=== PATIENT | female | born 1995 | race Caucasian/White ===

== ENCOUNTER → 2018-02-13 | Outpatient (REF) | payer OTHER | LOC: M LAB REF 13:24 | DX: N39.0 Urinary tract infection, site not specified (principal) | CPT/HCPCS: 87086 ==

== ENCOUNTER → 2018-09-17 | Outpatient (REF) | payer OTHER | LOC: M LAB REF 10:39 | PROVIDERS: ATTEND Physician Assistant | DX: R30.0 Dysuria (principal) ==

== ENCOUNTER 2018-11-18 15:36 | Inpatient (IN) | payer OTHER ==
[~2018-11-18] VITALS: Ht 167.6 cm; Wt 116.9 kg
[2018-11-18 16:07] VITALS: BP 111/66
[2018-11-18] MEDS ORDERED: PRENTAB9 PO (16:20)
[2018-11-18] MEDS ORDERED: MAPA500C PO (16:20)
[2018-11-18] MEDS ORDERED: TUMS500C PO (16:20)
[2018-11-18 16:25] VITALS: BP 109/61
[2018-11-18] MEDS ORDERED: LACTATED RINGER'S 1000 ML IV STA (16:49)
[2018-11-18 17:02] LABS: HEMOGLOBIN 12.9 g/dl (12.0-15.5); MEAN CORPUSCULAR HEMOGLOBIN 31.2 pg (27.0-33.0); MEAN CORPUSCULAR HGB CONC 34.9 g/dl (32.0-36.5); MEAN CORPUSCULAR VOLUME 89.6 fl (80.0-96.0); PLATELET COUNT, AUTOMATED 159 10^3/uL (150-450); RED BLOOD COUNT 4.13 10^6/uL (4.00-5.40)
--- NOTE | 2018-11-18 17:32 | HPEPDOC ---
Obstetrical History & Physical General Date of Admission Nov 18, 2018 at 15:36 History of Present Illness 23yo at 37+5wks presents to LND for observation and possible IOL. Pt sent f rom OB Clinic after APFT with non-reassuring tracing and KRISTEN of 2 (BPP 6/10). Pt reports +FM, denies LOF/VB/CTX. complicated by obesity (pre- BMI 43.42), Hashimotos, Anxiety/depression. 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 (FOB negative) Chief Complaint: Observation, Other Information Provided By: Patient Care Care: Good Care Number of Visits: 11 Dating Final EDC: Dec 04, 2018 Final EDC for Daily Update: Dec 04, 2018 Final EDC by: LMP Antepartum Course Diagnos(e)s Obesity, Hashimotos, Varicella NI, Anxiety/Depression, Cystic Fibrosis Carrier (spouse negative) Height (inches): 66 Pre- weight (lbs.): 269 Admission Weight (lbs.): 257 Change in Weight (lbs.): -12 Past Medical History Past Obstetrical History : Past Obstetrical History: Primgravida Past Medical History Medical History Hashimotos, migraines, obesity Surgical History: Gallbladder Family History Significant Family History: No pertinent family hx Social History Marital Status: Family situation: Spouse/partner home Psychosocial History: Anxiety, Depression * Smoker: non-smoker Alcohol: Denies Drugs: denies Allergies Coded Allergies: No Known Allergies (Unverified , 11/18/18) Medications Scheduled No.137/Iron/Folic Acd ( Vitamin Tablet) 1 Each Tablet, 1 TAB PO DAILY Scheduled PRN Acetaminophen (Mapap) 500 Mg Capsule, 500 MG PO PRN PRN for PAIN Calcium Carbonate (Tums) 200 Mg Tab.chew, 2 TAB PO Q4H PRN for INDIGESTION Physical Examination Physical Examination GENERAL: Alert and oriented times three. BREAST: . ABDOMEN: Gravid and non-tender to touch. FETUS: Is vertex by US HEART RATE: Regular rate and rhythm. LUNGS: CTA EXTREMITIES: Mild bilateral pedal edema, nonpitting Other physical findings [facility] BPP: 8/8 KRISTEN: 6.8 Vital Signs/I&O Vital Signs Date Time Temp Pulse Resp B/P (MAP) Pulse Ox O2 Delivery O2 Flow Rate FiO2 11/18/18 16:25 100 109/61 (77) 11/18/18 16:07 98.7 Laboratory Data 24H LABS Laboratory Tests 2 11/18/18 16:50: CBC/BMP Pertinent Laboratoy Data Blood Type: A+ RBC Antibody Screen: Negative HIV: Negative Hepatitis B: Negative Rapid Plasma Reagin: Nonreactive Rubella: Immune Varicella: Nonreactive Chlamydia/Gonorrhea: Negative Group B Streptococcus: Negative Quad Screen Test: Negative Cystic Fibrosis: Positive Glucose Tolerance Test: 91 Anatomy Ultrasound Ultrasound Date: July 13, 2018 Placenta Location: Posterior Normal Anatomy: No (Incomplete cardiac evaluation) Placenta Previa: No Other Ultrasounds [id number]: Repeat; WNL Cardiac views [id number]: Growth; 74%tile 5AUG9: Growth; 59%tile Assessment Heart Rate (FHR): 130 Variability: Moderate Accelerations: Positive Decelerations: None Tocometer Contractions: No Assessment/Plan Assessment 23yo at 37+5wks Category I FHT/Reactive (initial NST FHR 145, moderate variability, + accels, no decels noted; NST upon return from BPP: FHR 125, minimal variability, no accels or decels; then FHR increased to 130s with moderate variability with + accels, no decels noted, no CTX present for reactive 20 minute NST) - overall reassuring status BPP 8/8, KRISTEN 6.8 Plan Pt Hydrated with IV LR (2L) BPP (see imaging) Pt discharged home with strict return precautions Pt to f/u tomorrow at 0900 for repeat NST and BPP with KRISTEN; will reassess IOL pending results All results and plan of care discussed with Dr. Anderson Pt and spouse verbalize an understanding BRIANA ELIAS CNM Nov 18, 2018 17:32
[2018-11-18 17:34] VITALS: BP 122/67
[2018-11-18 18:32] VITALS: BP 129/70
--- NOTE | 2018-11-18 18:59 | REPVR ---
EXAM: US Biophysical Profile Without Non-Stress Test EXAM DATE/TIME: 11/18/2018 5:57 PM CLINICAL HISTORY: 23 years old, female; Other: Low fluid; ; Additional info: 37+5wks, needs bpp/kristen, R/O oligo TECHNIQUE: Imaging protocol: US biophysical profile without non-stress testing. COMPARISON: No relevant prior studies available. FINDINGS: Breathin/2 Gross body movements: 2/2 tone: 2/2 Qualitative amniotic fluid: 2/2 Biophysical Profile Score: 8/8 Gestation: Single intrauterine gestation. Cephalic presentation. Heart rate: heart rate measures 126 beats per minute. Placenta: Posterior grade 3 placenta. Umbilical artery Doppler: Umbilical artery S./D. ratio measures 2.1. Other findings: Amniotic fluid index measures 6.8 cm. Deepest pocket measures 3.2 cm. No hydronephrosis. Fluid within the urinary bladder. Fluid within the stomach. IMPRESSION: 1. Low normal KRISTEN. 2. Biophysical profile score is 8/8. 3. Vertex presentation. Electronically signed by: Maddison Cole On 11/18/2018 18:59:42 PM
--- NOTE | 2018-11-18 19:32 | OBDS ---
[facility] Obstetrical Discharge Sum. Obstetrical Discharge Summary Date: Nov 18, 2018 A/P, Post Course List any complications See H&P BRIANA ELIAS CNM Nov 18, 2018 19:32
== END 2018-11-18 19:42 | disposition home or self-care (01) | DRG 998 ==
LOC: M LDI 15:36
PROVIDERS: ADMIT Registered Nurse Maternal Newborn; ATTEND Registered Nurse Maternal Newborn
DX: O76 Abnormality in fetal heart rate and rhythm complicating labor and delivery (principal); Z68.41 Body mass index [BMI] 40.0-44.9, adult; Z3A.37 37 weeks gestation of pregnancy; E66.9 Obesity, unspecified; O99.213 Obesity complicating pregnancy, third trimester; E06.3 Autoimmune thyroiditis; O99.283 Endocrine, nutritional and metabolic diseases complicating pregnancy, third trimester; Z14.1 Cystic fibrosis carrier

== ENCOUNTER 2018-11-19 08:52 | Outpatient (CLI) | payer OTHER ==
[~2018-11-19] VITALS: Ht 167.6 cm; Wt 117.3 kg
[~2018-11-19 08:52] MED LIST: MAPA500C PO; PRENTAB9 PO; TUMS500C PO
[2018-11-19 09:11] VITALS: BP 116/55
[2018-11-19 10:20] VITALS: BP 121/64
--- NOTE | 2018-11-19 10:23 | IPNPDOC ---
Text Note Date of Service The patient was seen on 11/19/18. 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 She was seen for testing on 18Nov2018 and had a nonreactive tracing. She had a BPP that was 8/8 at that time. She was told to return today for repeat NS T/BPP. She reports that she is doing well and has no concerns today. She denies regular contractions, vaginal bleeding, loss of fluid. She reports active movement. VS: Reviewed, normotensive, nontachycardic, afebrile GEN: WNWD, NAD ABD: Soft, Gravid, NT EXT: no edema FHT: Reactive, 135bpm, moderate variability, +accelerations, -decelerations TOCO: quiet BPP: 8/8, KRISTEN 9.3cm A/P: SIUP at 3+6wks, presented for NST/BPP. RNST, BPP WNL with Normal KRISTEN. VSS. - Discussed strict return and labor precautions - Encouraged hydration - Discussed Kick counts - Keep all scheduled follow ups DO RITESH Ponce CRYSTAL B. DO Nov 19, 2018 10:23
--- NOTE | 2018-11-19 11:06 | REP ---
REASON: Obtain biophysical profile. Multiple ultrasonographic images of the gravid uterus show a single living intrauterine gestation in the cephalic presentation. Doppler interrogation of the heart shows a heart rate of 145 beats per minute. The cervix measures 3.3 cm in length and is closed. The subjective amniotic fluid volume is within normal limits. The placenta is posterior and not low lying. Doppler interrogation of the umbilical artery shows an A/B ratio of 2.52. This is within the normal range. The calculated amniotic fluid index is 9.3 with an expected range 7.3 to 24.0. biophysical scores: 2 for breathing, 2 for movement, 2 for tone, and 2 for amniotic fluid volume giving a sum total of 8 out of 8. Limited OB ultrasound with biophysical profile as described above. Electronically Signed by Zoltan Low DO 11/19/2018 11:25 A
== END 2018-11-19 10:30 | disposition home or self-care (01) ==
LOC: M LDO 08:52
PROVIDERS: ATTEND Obstetrics & Gynecology
DX: O26.893 Other specified pregnancy related conditions, third trimester (principal); Z3A.37 37 weeks gestation of pregnancy; O99.213 Obesity complicating pregnancy, third trimester; O99.283 Endocrine, nutritional and metabolic diseases complicating pregnancy, third trimester; O99.343 Other mental disorders complicating pregnancy, third trimester
CPT/HCPCS: 59025; 76815; 76819; 76820; G0378; G0463

== ENCOUNTER 2018-11-27 06:46 | Inpatient (IN) | payer OTHER ==
[~2018-11-27] VITALS: Ht 167.6 cm; Wt 116.8 kg
[2018-11-27] VITALS (21 sets, daily range): BP systolic 100–142; BP diastolic 55–92
[2018-11-27] MEDS ORDERED: LACTATED RINGER'S 1000 ML IV STA (07:24)
[2018-11-27 08:00] LABS: HEMATOCRIT 36.7 % (36.0-47.0); HEMOGLOBIN 12.3 g/dl (12.0-15.5); MEAN CORPUSCULAR HEMOGLOBIN 30.1 pg (27.0-33.0); MEAN CORPUSCULAR HGB CONC 33.5 g/dl (32.0-36.5); PLATELET COUNT, AUTOMATED 165 10^3/uL (150-450); RED BLOOD COUNT 4.08 10^6/uL (4.00-5.40); WHITE BLOOD COUNT 8.3 10^3/uL (4.0-10.0)
--- NOTE | 2018-11-27 08:40 | HPEPDOC ---
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 Ms. Mcghee reports feeling well and has no complaints. She denies any vaginal bleeding, contraction pain, or leakage of fluid. She endorses excellent movement. 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 Varicella non immune CF carrier --> FOB negative FOB's sister had cardiac defect ---> echo in current normal Anxiety/Depression ---> stable with BH counseling Past Medical History Past Obstetrical History : Past Obstetrical History: Primgravida [employer]IST History: No pertinent history Past Medical History Medical History Obesity ---> BMI 41 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 Anxiety/depression --> stable with behavioral health counseling Migraines Surgical History: Gallbladder Family History Significant Family History: No pertinent family hx Social History Marital Status: Family situation: Spouse/partner home Psychosocial History: Anxiety, Depression * Smoker: non-smoker Alcohol: Denies Drugs: denies Imunizations Tdap status: current Influenza Status: current Allergies Coded Allergies: No Known Allergies (Unverified , 11/18/18) Medications Scheduled No.137/Iron/Folic Acd ( Vitamin Tablet) 1 Each Tablet, 1 TAB PO DAILY Scheduled PRN Acetaminophen (Mapap) 500 Mg Capsule, 500 MG PO PRN PRN for PAIN Calcium Carbonate (Tums) 200 Mg Tab.chew, 2 TAB PO Q4H PRN for INDIGESTION Physical Examination Physical Examination GENERAL: Alert and oriented times three. BREAST: . ABDOMEN: Gravid and non-tender to touch. FETUS: Is vertex (VTX) by sterile vaginal examination (SVE), fetus is vertex (VTX) by Michael. HEART RATE: Regular rate and rhythm. LUNGS: Clear to auscultation (CTA). EXTREMITIES: No edema. No clonus. Deep tendon reflexes (DTRs) + . Laboratory Data 24H LABS Laboratory Tests 2 11/27/18 06:51: Serology Scanned Report Hepatitis B Testing 11/27/18 07:42: Nucleated Red Blood Cells % (auto) 0.0 CBC/BMP Laboratory Tests 11/27/18 07:42 Red Blood Count 4.08, Mean Corpuscular Volume 90.0, Mean Corpuscular Hemoglobin 30.1, Mean Corpuscular Hemoglobin Concent 33.5, Red Cell Distribution Width 13.7 Pertinent Laboratoy Data Blood Type: A+ RBC Antibody Screen: Negative HIV: Negative Hepatitis B: Negative Hepatitis C: Unknown Rapid Plasma Reagin: Nonreactive Rubella: Immune Varicella: Nonreactive Chlamydia/Gonorrhea: Negative Group B Streptococcus: Negative Quad Screen Test: Negative Cystic Fibrosis: Positive (Patient carrier for CF --> FOB negative) Glucose Tolerance Test: 91 Anatomy Ultrasound Placenta Location: Posterior Normal Anatomy: Yes Placenta Previa: No Steroid Therapy Steroid Therapy: No Vaginal Examination Dilation: 1cm Effacement: 50% Station: -3 Cervical Consistency: Medium Cervical Position: Posterior Presentation: Cephalic presentation Position: Vertex (occiput) Assessment Heart Rate (FHR): 135 Variability: Moderate Accelerations: Positive Decelerations: None Tocometer Contractions: No Assessment/Plan Assessment 23 yo at 39+0 weeks today presents for IOL for class III obesity and nahum's disease. Plan Admit for IOL. Apply IV fluids. Regular diet. GBS negative. Cervix unfavorable. Will start IOL with misoprostol. Patient may have epidural when desired. Anticipate . DO JACOB Brown CHRISTOPHER J. DO Nov 27, 2018 08:40
[2018-11-27] MEDS ORDERED: miSOPROStol 50 MCG 1/2 TAB (S0191) PO ONE (08:45)
[2018-11-27] MEDS ORDERED: BUTORPHANOL 2 MG/ML INJ (J0595) IV ONE (14:00)
--- NOTE | 2018-11-27 15:03 | IPNPDOC ---
Text Note Date of Service The patient was seen on 11/27/18. NOTE Patient s/p misoprostol and contractions have become regular. Cervix: /-3. Dawn bulb placed with 60ml saline intrauterine. FHR Cat I. Good change s/p cytotec. Patient nirmala on her own. Will give IV analgesia per patient request. When dawn bulb out will start pitocin. DO Rommel VS,Kaylee, I+O VS, Kaylee, I+O Laboratory Tests 11/27/18 07:42 Red Blood Count 4.08, Mean Corpuscular Volume 90.0, Mean Corpuscular Hemoglobin 30.1, Mean Corpuscular Hemoglobin Concent 33.5, Red Cell Distribution Width 13.7 Vital Signs Date Time Temp Pulse Resp B/P (MAP) Pulse Ox O2 Delivery O2 Flow Rate FiO2 11/27/18 12:35 97.6 79 18 106/60 (75) DARELL JAMES DO Nov 27, 2018 15:03
[2018-11-27] MEDS ORDERED: ONDANSETRON 4MG/2ML VIAL (J2405) IV PRN ×2 (15:15→19:55)
[2018-11-27] MEDS ORDERED: LR 1,000 ML IV SCH (19:00)
[2018-11-27] MEDS ORDERED: OXYTOCIN DRIP 30 UNITS in APPROPRIATE DILUENT 1 EA IV SCH (19:00)
[2018-11-27] MEDS ORDERED: FENTANYL 2MCG/ML ROPIVACAINE 0.2% IN 0.9% NACL 100ML IVBAG As Ordered ONE (19:12)
[2018-11-27] MEDS ORDERED: FENTANYL/ROPIVACAINE/NACL BAG 100 ML EPIDURAL SCH (19:55)
[2018-11-27] MEDS ORDERED: NALOXONE INJ 0.4 MG/1 ML VIAL (J2310) IV PRN (19:55)
[2018-11-27] MEDS ORDERED: EPIDURAL/PCA KEYS XX PRN (19:55)
[2018-11-27] MEDS ORDERED: ePHEDrine SULFATE 25 MG/5 ML(5MG/ML) SYRINGE IV PRN (19:55)
[2018-11-27] MEDS ORDERED: REFRIGERATOR IV KEYS XX PRN (19:55)
[2018-11-27] MEDS ORDERED: diphenhydrAMINE INJ 50MG/ML VIAL (J1200) IV PRN (19:55)
[2018-11-27] MEDS ORDERED: EPIDURAL COMMENT XX SCH (19:55)
[2018-11-27] MEDS ORDERED: LIDOCAINE 2% W/EPIN INJ 20ML **PRES FREE As Ordered ONE (20:29)
--- NOTE | 2018-11-27 20:40 | IPNPDOC ---
Text Note Date of Service The patient was seen on 11/27/18. NOTE [place] bulb came and patient started nirmala regularly and feeling signif icant pain. Pitocin was never started. She received an epidural with some relief. Cervix: /-1. FHR Cat I. Contractions regular. Patient progressing well into active phase. Will add pitocin if contractions space. DO Rommel VS,Kaylee, I+O VS, Kaylee, I+O Laboratory Tests 11/27/18 07:42 Red Blood Count 4.08, Mean Corpuscular Volume 90.0, Mean Corpuscular Hemoglobin 30.1, Mean Corpuscular Hemoglobin Concent 33.5, Red Cell Distribution Width 13.7 Vital Signs Date Time Temp Pulse Resp B/P (MAP) Pulse Ox O2 Delivery O2 Flow Rate FiO2 11/27/18 17:46 97.8 71 18 115/83 (94) DARELL JAMES DO Nov 27, 2018 20:40
--- NOTE | 2018-11-28 00:12 | IPNPDOC ---
Text Note Date of Service The patient was seen on 11/28/18. NOTE Epidural redone because Paola had no relief from her first one. Now she is comfortable. Cervix: 7/C/0. AROM performed productive of clear fluid. FHR Cat I. Patient nirmala well on her own. Will add pitocin if necessary. All patient questions answered. DO Rommel VS,Kaylee, I+O VS, Kaylee, I+O Laboratory Tests 11/27/18 07:42 Red Blood Count 4.08, Mean Corpuscular Volume 90.0, Mean Corpuscular Hemoglobin 30.1, Mean Corpuscular Hemoglobin Concent 33.5, Red Cell Distribution Width 13.7 Vital Signs Date Time Temp Pulse Resp B/P (MAP) Pulse Ox O2 Delivery O2 Flow Rate FiO2 11/27/18 17:46 97.8 71 18 115/83 (94) DARELL JAMES DO Nov 28, 2018 00:12
--- NOTE | 2018-11-28 04:19 | IPNPDOC ---
Text Note Date of Service The patient was seen on 11/28/18. NOTE Presented to room for assessment. Paola is feeling some pressure. Cervix: C/C/+1. FHR Cat I with intermittent early decels. Will begin pushing soon. DO Rommel VS,Kaylee, I+O VS, Kaylee, I+O Laboratory Tests 11/27/18 07:42 Red Blood Count 4.08, Mean Corpuscular Volume 90.0, Mean Corpuscular Hemoglobin 30.1, Mean Corpuscular Hemoglobin Concent 33.5, Red Cell Distribution Width 13.7 Vital Signs Date Time Temp Pulse Resp B/P (MAP) Pulse Ox O2 Delivery O2 Flow Rate FiO2 11/27/18 21:15 97.6 80 17 100 11/27/18 21:12 104/55 (71) DARELL JAMES DO Nov 28, 2018 04:19
[2018-11-28] MEDS ORDERED: OXYTOCIN DRIP 30 UNITS in APPROPRIATE DILUENT 1 EA IV SCH (05:44)
[2018-11-28] MEDS ORDERED: MEASLES,MUMPS,RUBELLA VACCINE INJ (MMR-II) (90707) SC SCH (05:45)
[2018-11-28] MEDS ORDERED: DIBUCAINE 1% OINTMENT 30GM TOP PRN (05:45)
[2018-11-28] MEDS ORDERED: ACETAMINOPHEN 500 MG TAB PO PRN (05:45)
[2018-11-28] MEDS ORDERED: IBUPROFEN 800 MG TAB PO PRN (05:45)
[2018-11-28] MEDS ORDERED: ONDANSETRON 4MG/2ML VIAL (J2405) IV PRN (05:45)
[2018-11-28] MEDS ORDERED: ACETAMINOPHEN TAB 650MG DOSE (2X325MG) PO PRN (05:45)
[2018-11-28] MEDS ORDERED: DOCUSATE SODIUM 100 MG CAP PO PRN (05:45)
[2018-11-28] MEDS ORDERED: IBUPROFEN 600 MG TAB PO PRN (05:45)
[2018-11-28] MEDS ORDERED: RHOGAM 300 MCG (1500 IU) INJ (J2790) IM SCH (05:45)
--- NOTE | 2018-11-28 05:49 | DNPDOC ---
[facility] Delivery Note Delivery Note DATE OF DELIVERY: 28Nov2018 at ~0520 PREDELIVERY DIAGNOSIS: 39+1 weeks gestation and IOL for class III obesity POST DELIVERY DIAGNOSIS: Delivered. PROCEDURE: Spontaneous vaginal delivery AGRONOMY SPECIALIST: Dr. Carney ANESTHESIA: Epidural ESTIMATED BLOOD LOSS: 200 mL. FINDINGS: Viable male , 8lbs 6oz (3810 grams), Apgars 9/9 DELIVERY SUMMARY: Presented to room as Paola was pushing well to +3 station. The bed was broken down and she was prepped for delivery. With excellent effort over about 45 minutes of pushing her infant delivered. presentation was SCOTT with restitution to LOT. The right anterior shoulder delivered with gentle traction followed easily by the remainder of the body. The was dried and stimulated on the field and a bulb suction was used. The was then placed on the maternal abdomen and cried vigorously. The three vessel cord was then clamped and cut by the FOB after appropriate time delay. Third stage was then completed with gentle traction on the cord and it was productive of an intact placenta. The uterine fundus was firmed with massage and pitocin was administered via IV bolus. Inspection of the vagina, perineum, and cervix revealed a left vaginal sidewall laceration and left hector clitoral laceration. These were repaired in the usual fashion with 3-0 vicryl and 4-0 vicryl suture respectively. There was excellent cosmesis and hemostasis after the repair. The fundus was palpated again and was firm. Sponge, instrument, and needle counts were correct X2. Mother and stable when I left the room. DO JACOB Brown CHRISTOPHER J. DO Nov 28, 2018 05:49
[2018-11-28 07:00] VITALS: BP 115/67
[2018-11-28 07:27] VITALS: BP 150/66
[2018-11-28 07:41] VITALS: BP 108/61
[2018-11-28 08:03] VITALS: BP 108/66
[2018-11-28] MEDS: PRENATAL VITAMINS CHEWABLE TABLET PO SCH (08:40)
[2018-11-28] MEDS: SLF 3 ML SYR IV SCH ×2 (14:06→22:00)
[2018-11-28] MEDS ORDERED: INFLUENZA QUADRIVALENT PF VACCINE 0.5ML SYRINGE (90686) IM ONE (16:00)
[2018-11-28 18:00] VITALS: BP 128/62
[2018-11-29 06:00] VITALS: BP 119/71
--- NOTE | 2018-11-29 07:24 | IPNPDOC ---
Progress Note Date of Service: Nov 29, 2018 Day#: 1 Progress Note SUBJECT: Paola is a 23-year-old 1 now Para 1001 status post uncomplica kan spontaneous vaginal delivery at 39+1 weeks' at approximately on 28Nov2018 of a Male infant 8 pounds 6 ounces (3810 grams) doing well day # 1. She has been ambulating, voiding spontaneously without issue and tolerating regular diet. Breast feeding without issue. Reports lochia is like a normal period. Pain controlled. Denies headache, chest pain, shortness of breath, n/v, RUQ pain or vision changes. OBJECTIVE: VITAL SIGNS: Within normal limits, afebrile (isolated mild range BP). Alert and oriented times three. Abdomen: Fundus firm at U-1. Soft, NTTP. [Minimal] lochia. ASSESSMENT: Paola is a 23-year-old 1 now Para 1001 status post uncomplicated spontaneous vaginal delivery at 39+1 weeks', doing well on day 1. Vitals within normal limits, afebrile, hemodynamically stable with no evidence of infection. No concerns for Pre Eclampsia at this time PLAN: 1. Continue routine , continue to monitor vital signs, isolated mild range BP, no persistent, if becomes persistent, consider Pre Eclampsia labs 2. Motrin, Tylenol for pain control 3. Encourage breast feeding and ambulation. 4. [Paragard] for contraception at 6 week appointment. 5. Encouraged hydration. 6. Regular Diet as tolerated. 7. Discharge to home tomorrow. Misti Awad DO VS, I&O, 24H, Fishbone Vital Signs/I&O Vital Signs Date Time Temp Pulse Resp B/P (MAP) Pulse Ox O2 Delivery O2 Flow Rate FiO2 11/29/18 06:00 97.9 62 16 119/71 (87) 95 I&O- Last 24 Hours up to 6 AM 11/29/18 06:00 Output Total 800 ml Balance -800 ml MISTI AWAD DO Nov 29, 2018 07:24
[2018-11-29] MEDS: PRENATAL VITAMINS CHEWABLE TABLET PO SCH (08:57)
[2018-11-29 18:00] VITALS: BP 122/80
[2018-11-30 05:52] VITALS: BP 126/75
[2018-11-30] MEDS ORDERED: ACET-683 PO (07:12)
[2018-11-30] MEDS ORDERED: DIBU10OI TOP (07:12)
[2018-11-30] MEDS ORDERED: COLA100C5 PO (07:12)
[2018-11-30] MEDS ORDERED: IBUP80TA PO (07:12)
[2018-11-30] MEDS: PRENATAL VITAMINS CHEWABLE TABLET PO SCH (07:59)
--- NOTE | 2018-12-01 11:59 | DSES ---
DATE OF ADMISSION: 11/27/2018 DATE OF DISCHARGE: 11/30/2018 This lady is a 23-year-old 1, now para 1 admitted for induction of labor at 39 weeks of gestation being a class III obesity, body mass index (BMI) of 41 and Ann's thyroiditis on no medication. She had an epidural in place, delivered a live male , 8 pounds, 6 ounces, 3810 grams, scores of 9 and 9 at one and five minutes respectively. On her first day, we discussed phlebitis, cystitis, mastitis, endometritis and cellulitis, diet, exercise, pain management, perineal, breast and wound care. Medications were dispensed at [place]. The patient will have a six-week checkup with [facility]. Admitting hemoglobin was 12.3, hematocrit 36.7 and platelets were 165. Her vital signs on discharge: Her blood pressure is 126/75, respirations 18, pulse 75, temperature is 98.9. She had a small left vaginal sidewall tear which is healing and a left hector clitoral tear which is healing. The rest of the examination is unremarkable. Normocephalic, atraumatic. Neck: Full range of motion. Pupils equal and reactive to light. Distal pulses are symmetric. No evidence of deep vein thrombosis (DVT), pulmonary embolism (PE) or superficial phlebitis. Chest is clear bilaterally to bases. No wheezes or rhonchi. No costovertebral angle (CVA) tenderness. Abdomen: Soft, uterus 2 below. Lochia is moderate. Four quadrant bowel sounds are noted. Perineum is healing. She has no shortness of breath or cough. She has no urgency, frequency, nausea, vomiting, diarrhea or constipation. In summary, we have a term gestation delivered a live male infant, discharged improved. Followup in the office in six weeks' time.
== END 2018-11-30 12:00 | disposition home or self-care (01) | DRG 807 ==
LOC: M LDI 06:46 → M OBS 11-28 07:56
PROVIDERS: ADMIT Obstetrics & Gynecology; ATTEND Obstetrics & Gynecology
PROC: 3E0P7GC Introduction of Other Therapeutic Substance into Female Reproductive, Via Natural or Artificial Opening (ICD-10-PCS; 2018-11-27)
PROC: 10E0XZZ Delivery of Products of Conception, External Approach (ICD-10-PCS; principal; 2018-11-28)
PROC: 0HQ9XZZ Repair Perineum Skin, External Approach (ICD-10-PCS; 2018-11-28)
PROC: 10907ZC Drainage of Amniotic Fluid, Therapeutic from Products of Conception, Via Natural or Artificial Opening (ICD-10-PCS; 2018-11-28)
DX: O99.214 Obesity complicating childbirth (principal); Z37.0 Single live birth; Z3A.39 39 weeks gestation of pregnancy; E66.9 Obesity, unspecified; O99.283 Endocrine, nutritional and metabolic diseases complicating pregnancy, third trimester; E06.3 Autoimmune thyroiditis; Z14.1 Cystic fibrosis carrier; O70.0 First degree perineal laceration during delivery

== ENCOUNTER 2019-12-12 21:36 | Emergency (ER) | payer OTHER ==
[~2019-12-12] VITALS: Ht 170.2 cm; Wt 122.1 kg
[~2019-12-12 21:36] MED LIST changes: +ACET-683 PO; +COLA100C5 PO; +DIBU10OI TOP; +IBUP80TA PO
[2019-12-12 21:37] VITALS: BP 131/65
[2019-12-12 22:52] LABS: BASO # 0.1 10^3/uL (0.0-0.2); BASO % 0.8 % (0.0-1.0); EOS # 0.4 10^3/uL (0.0-0.5); EOS % 3.4 % (0.0-3.0); HEMOGLOBIN 12.4 g/dl (12.0-15.5); LYMPH # 2.2 10^3/uL (1.5-5.0); LYMPH % 21.1 % (24.0-44.0); MEAN CORPUSCULAR HEMOGLOBIN 27.8 pg (27.0-33.0); MEAN CORPUSCULAR HGB CONC 31.8 g/dl (32.0-36.5); MEAN CORPUSCULAR VOLUME 87.4 fl (80.0-96.0); MONO # 0.5 10^3/uL (0.0-0.8); MONO % 4.7 % (0.0-5.0); NEUTROPHILS # 7.2 10^3/uL (1.5-8.5); NEUTROPHILS % 69.8 % (36.0-66.0); PLATELET COUNT, AUTOMATED 220 10^3/uL (150-450); RED BLOOD COUNT 4.46 10^6/uL (4.00-5.40); WHITE BLOOD COUNT 10.3 10^3/uL (4.0-10.0)
[2019-12-12 23:09] LABS: HCG, SERUM QUALITATIVE POSITIVE (NEGATIVE)
[2019-12-12 23:30] LABS: BLOOD UREA NITROGEN 7 MG/DL (7-18); CALCIUM LEVEL 9.4 MG/DL (8.5-10.1); CARBON DIOXIDE LEVEL 28 MEQ/L (21-32); CHLORIDE LEVEL 105 MEQ/L (98-107); CREATININE FOR GFR 0.79 MG/DL (0.55-1.30); GLOMERULAR FILTRATION RATE > 60.0 (>60); GLUCOSE, FASTING 96 MG/DL (70-100); POTASSIUM SERUM 4.1 MEQ/L (3.5-5.1); SODIUM LEVEL 139 MEQ/L (136-145)
[2019-12-12 23:49] LABS: HCG, SERUM QUANTITATIVE 82 MIU/ML
[2019-12-13] MEDS ORDERED: SYNT50TA PO (02:51)
--- NOTE | 2019-12-13 03:05 | REPVR ---
PROCEDURE INFORMATION: Exam: US First Trimester, Transabdominal and US , Transvaginal Exam date and time: 12/13/2019 1:42 AM Age: 24 years old Clinical indication: Lmp or gestational age (in weeks): 12/01/19; Antepartum complications; Bleeding; complicated by abdominal or pelvic pain; Lower; First trimester; ; Additional info: Hcg 82, displaced iud TECHNIQUE: Imaging protocol: Real-time transabdominal obstetrical ultrasound of the maternal pelvis and a first trimester , less than 14 weeks 0 days, with image documentation. Transvaginal imaging was used for better evaluation of the fetus and adnexa. COMPARISON: No relevant prior studies available. FINDINGS: Gestation: No definitive intrauterine gestational sac is visualized. Ectopic cannot be excluded. Embryonic/ heart rate: N/A. Placenta: N/A. Amniotic fluid: N/A. BIOMETRY: Gestational age (AUA): N/A. MATERNAL: Uterus: The uterus measures 8.5 x 4.4 x 7.0 cm. There is an echogenic band within the endometrial canal, consistent with an IUD. Linear bands of echogenicity are identified within the posterior wall of the uterus, suggestive of artifact associated with the IUD. Device perforation is within the differential, but considered less likely. The endometrial stripe measures 13.6 mm. No uterine mass identified. Cervix: Unremarkable, as visualized. Right adnexa: The right ovary measures 4.4 x 3.4 x 4.9 cm. Three hypoechoic cysts are identified within the right ovary, measuring 2.8 x 1.4 x 2.1 cm, 2.4 x 1.9 x 2.5 cm, and 1.9 x 2.1 x 2.0 cm. Additional follicles are seen within the right ovary. There is preservation of blood flow within the right ovary. Left adnexa: Multiple follicles are identified within the left ovary. There is preservation of blood flow within the left ovary. Intraperitoneal space: No intraperitoneal free fluid. IMPRESSION: 1. No definitive intrauterine gestational sac is visualized. Ectopic cannot be excluded. 2. An IUD is visualized. Linear bands of echogenicity are identified within the posterior wall of the uterus, suggestive of artifact associated with the IUD. Device perforation is within the differential, but considered less likely. 3. Right ovarian cysts. 4. Multiple follicles are identified within the left ovary. 5. Correlation with serial hCG levels and follow-up ultrasonography are recommended. Electronically signed by: Calvin Rubin On 12/13/2019 03:05:09 AM
== END 2019-12-13 03:48 | disposition home or self-care (01) ==
LOC: M ED 21:36
DX: O20.0 Threatened abortion (principal); Z97.5 Presence of (intrauterine) contraceptive device; Z3A.00 Weeks of gestation of pregnancy not specified